=== PATIENT | female | born 1975 | race African-American/Black ===

== ENCOUNTER 2016-12-23 09:20 | Outpatient (CLI) | payer BC ==
[2016-12-23 10:05] LABS: #Eosinphils 0.2 thou/uL (0.0-0.7); #Lymphocytes 2.2 thou/uL (1.20-3.40); #Monocytes 0.4 thou/uL (0.11-0.59); #Neutrophils 2.8 thou/uL (1.40-6.50); %Basophils 0.8 % (0.0-1.0); %Eosinophils 2.7 % (0.0-10.0); %Lymphocytes 38.9 % (21.0-51.0); %Neutrophils 50.6 % (42.0-75.0); Hemoglobin 12.9 g/dL (12.0-16.0); Mean Corpuscular HGB CONC 33.5 g/dL (32.0-36.0); Mean Corpuscular Hemoglobin 29.7 pg (27.0-31.0); Mean Corpuscular Volume 88.6 fl (81.0-99.0); Mean Platelet Volume 8.3 fL (7.4-10.4); Platelet Count 257 thou/uL (130-400); RBC Distribution Width 13.1 % (11.5-14.5); Red Blood Cell (RBC) Count 4.34 mill/uL (4.20-5.40); White Blood Cell (WBC) Count 5.6 thou/uL (4.8-10.8)
[2016-12-23 10:22] LABS: ALT (SGPT) 11 U/L (8-55); AST (SGOT) 16 U/L (5-34); Albumin 4.2 g/dL (3.5-5.0); Alkaline Phosphatase 52 U/L (40-150); Anion Gap 11 mmol/L (10-20); BUN (Urea Nitrogen) 10 mg/dL (7.0-18.7); Bilirubin, Total 0.6 mg/dL (0.2-1.2); Calc. Creatinine Clearance 0 mL/min (70-130); Calcium 9.2 mg/dL (7.8-10.44); Carbon Dioxide 26 mmol/L (22-29); Cardiac Risk 3.6 (Less than 4.5); Chloride 107 mmol/L (98-107); Cholesterol 177 mg/dl (< 200 Desired); Estimated GFR-MDRD 69; Glucose 86 mg/dL (70-105); HDL Cholesterol 49 mg/dL (>60 Neg Risk); LDL Cholesterol, Calculated 115 mg/dL; Potassium 4.1 mmol/L (3.5-5.1); Protein, Total 7.2 g/dL (6.0-8.3); Sodium 140 mmol/L (136-145); Triglycerides 63 mg/dL (Less than 150)
== END 2016-12-23 09:21 ==
LOC: HPCALD 09:20
PROVIDERS: ATTEND Physician Assistant
DX: Z00.01 Encounter for general adult medical examination with abnormal findings (principal)
CPT/HCPCS: 36415; 80053; 80061; 84443; 85025

== ENCOUNTER 2017-03-13 10:20 | Outpatient (CLI) | payer BC ==
--- NOTE | 2017-03-13 12:15 | RAD ---
TWO VIEWS LEFT HIP: Date: 03-13-17 Comparison: None. History: Left hip pain. FINDINGS: There is prominent degenerative change at the pubic symphysis. There is mild superior joint space na rrowing. There is mild acetabular osteophyte formation and subchondral sclerosis. There is no displa enmanuel fracture or dislocation. IMPRESSION: No acute osseous abnormality. Degenerative changes as above. POS: [facility]
--- NOTE | 2017-03-13 12:21 | RAD ---
FOUR VIEWS LEFT KNEE: Date: 03-13-17 Comparison: None. History: Acute left knee pain. FINDINGS: There is moderate medial compartment narrowing with associated medial osteophyte formation. There is no displaced fracture or dislocation. No radiopaque foreign body. No subcutaneous gas. There is mod erate patellofemoral joint space narrowing, subchondral sclerosis and superior patellar osteophyte f ormation. IMPRESSION: Multi compartment degenerative change. No fracture or dislocation. POS: [facility]
== END 2017-03-13 10:21 | disposition home or self-care (01) ==
LOC: BURRAD 10:20
PROVIDERS: ATTEND Physician Assistant
DX: M25.562 Pain in left knee (principal); M25.552 Pain in left hip; M17.12 Unilateral primary osteoarthritis, left knee

== ENCOUNTER 2019-06-23 16:30 | Emergency (ER) | payer BC ==
[2019-06-23] MEDS ORDERED: predniSONE 20 MG TAB ONE (20:17)
--- NOTE | 2019-06-23 21:05 | RAD ---
CHEST TWO VIEWS: 06/23/19 The heart is normal in size and the lungs are clear. There is no infiltrate or effusion to suggest pn eumonia. The mediastinum appears normal. IMPRESSION: No acute findings. POS: [facility]
== END 2019-06-23 20:25 | disposition home or self-care (01) ==
LOC: BURERS 16:30
DX: J06.9 Acute upper respiratory infection, unspecified (principal); I10 Essential (primary) hypertension; Z79.899 Other long term (current) drug therapy
CPT/HCPCS: 71046; 87804; J7512; J7620